=== PATIENT | male | born 1950 | race Caucasian/White ===

== ENCOUNTER 2018-03-14 08:59 | Outpatient (CLI) | payer MEDICARE, OTHER ==
[~2018-03-14 08:59] MED LIST: ACYC800T PO; AMLO5TAB7 PO; AVINZA PO; CLON0.5T12 PO; LEVO112T2 PO; OLME40TA12 PO; OXCA150T5 PO; PROP40TA7 PO; TAMS0.4C34 PO; TEST1.25 TD
== END 2018-03-14 23:59 | disposition home or self-care (01) ==
LOC: US 08:59
DX: R94.5 Abnormal results of liver function studies (principal)
CPT/HCPCS: 76700-TC

== ENCOUNTER 2025-05-09 19:00 | Inpatient (IN) | payer MEDICARE, OTHER ==
[~2025-05-09] VITALS: Ht 175.3 cm; Wt 75.3 kg
[~2025-05-09 19:00] MED LIST changes: +ACYC-108 PO; -ACYC800T PO; +AMLO-212 PO; -AMLO5TAB7 PO; -CLON0.5T12 PO; +CLON0.5T4 PO
[2025-05-09 19:10] VITALS: TEMP 98.1
[2025-05-09] MEDS ORDERED: IV NS 0.9% 500 ML IV ONE (19:12)
[2025-05-09] MEDS ORDERED: IOHEXOL-350 100 ML VIAL IV ONE (19:12)
[2025-05-09 19:55] LABS: APPEARANCE,URINE CLEAR (CLEAR); BLOOD, URINE NEGATIVE Ery/uL (NEGATIVE); LEUKOCYTE ESTERASE ,URINE NEGATIVE (NEGATIVE); NITRITE, URINE NEGATIVE (NEGATIVE); UGLUCOSE NEGATIVE (NEGATIVE)
[2025-05-09 20:03] VITALS: BP 164/92; O2SAT 99
[2025-05-09 20:08] LABS: PLATELET COUNT (AUTO) 138 K/uL (150-450); RED BLOOD CELL COUNT(AUTO) 5.13 MIL/uL (4.5-6.0); RED CELL DISTRIBUTION WIDTH 14.8 % (11.5-15.0); WHITE BLOOD COUNT (AUTO) 6.3 K/uL (4.3-11.0)
[2025-05-09 20:21] LABS: INR 1.06 (0.91-1.10)
[2025-05-09 20:26] LABS: CALCIUM, SERUM 8.7 mg/dL (8.5-10.1); CREATININE 1.7 mg/dL (0.6-1.3); SODIUM SERUM 131.0 mmol/L (136-145); UREA NITROGEN, BLOOD 29.0 mg/dL (7-18)
[2025-05-09] MEDS: ATORVASTATIN 40 MG TABLET PO SCH (22:00)
[2025-05-09] MEDS ORDERED: CELE100C PO (22:03)
[2025-05-09] MEDS ORDERED: METO25TA3 PO ×2 (22:06→22:18)
[2025-05-09] MEDS ORDERED: GABA300C PO (22:09)
[2025-05-09] MEDS ORDERED: VALS320T16 PO (22:20)
[2025-05-09] MEDS ORDERED: GABA600T PO (22:22)
[2025-05-09] MEDS ORDERED: CLON1TAB PO (22:24)
[2025-05-09] MEDS ORDERED: SUVO20TA PO (22:24)
[2025-05-09] MEDS ORDERED: CLON1TAB12 PO (22:27)
[2025-05-09] MEDS ORDERED: LEVO25TA7 PO (22:27)
[2025-05-09] MEDS: ASPIRIN 325 MG TABLET PO ONE (22:46)
[2025-05-09] MEDS: ENOXAPARIN SODIUM 40 MG/0.4 ML DISP.SYRIN SQ SCH (22:48)
[2025-05-09 23:35] LABS: ASPARTATE AMINOTRANSFERASE 23.0 U/L (15-37); TOTAL PROTEIN, SERUM 6.8 g/dL (6.4-8.2)
[2025-05-09 23:37] LABS: LDL 25 mg/dL (0-99)
[2025-05-09] MEDS: BLOOD SUGAR DIAGNOSTIC 1 EACH STRIP IN SCH (23:54)
[2025-05-10] MEDS ORDERED: ASPIRIN 81 MG TAB.CHEW PO SCH (09:00)
== END 2025-05-10 00:25 | disposition left against medical advice (07) | DRG 69 ==
LOC: ER 19:05 → TELE 20:50
PROVIDERS: ADMIT Registered Nurse Psychiatric/Mental Health; ATTEND Registered Nurse Psychiatric/Mental Health
DX: G45.9 Transient cerebral ischemic attack, unspecified (principal); N17.9 Acute kidney failure, unspecified; E87.1 Hypo-osmolality and hyponatremia; R47.01 Aphasia; Z86.73 Personal history of transient ischemic attack (TIA), and cerebral infarction without residual deficits; I12.9 Hypertensive chronic kidney disease with stage 1 through stage 4 chronic kidney disease, or unspecified chronic kidney disease; N18.9 Chronic kidney disease, unspecified; E03.9 Hypothyroidism, unspecified; I10 Essential (primary) hypertension; R29.700 NIHSS score 0; E87.6 Hypokalemia; Z79.890 Hormone replacement therapy; Z79.899 Other long term (current) drug therapy; Z87.891 Personal history of nicotine dependence; Z53.29 Procedure and treatment not carried out because of patient's decision for other reasons
CPT/HCPCS: 36415; 70450-TC; 70496-TC; 70498-TC; 80048-TC; 80061-TC; 80076-TC; 82962-TC; 84443-TC; 84484-TC; 85025-TC; 85652-TC; 85730-TC; 87081-TC; G0378; J1650; J7040; Q9967